=== PATIENT | female | born 2005 | race Caucasian/White ===

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

== ENCOUNTER 2025-06-27 09:55 | Emergency (ER) | payer OTHER, SELFPAY ==
--- NOTE | ~2025-06-27 | US_ITS ---
CLINICAL HISTORY: RLQ pain, pls look for appy US abdomen limited. COMPARISON: None provided. Technique: Multiple wheeler-scale and Doppler sonographic images were obtained over the right lower quadrant. FINDINGS: The appendix was not seen. Small amount of free fluid present within the right lower quadrant. Normal peristalsing bowel. No mass or adenopathy. Limited imaging of the right kidney is unremarkable. Limited imaging of the gallbladder is unremarkable. Bilateral ureteral jets visualized. IMPRESSION: 1. Appendix is not seen. 2. Small amount of free fluid present within the right lower quadrant. This document has been electronically signed by: Rakesh Sterling MD on 06/27/2025 17:47:50
--- NOTE | ~2025-06-27 | US_ITS ---
CLINICAL HISTORY: RLQ pain Ultrasound pelvis transabdominal. COMPARISON: None provided. Technique: Real time sonographic imaging, including color-flow imaging, was performed by the japanese professor. Multiple pharmacy sales representative static images were saved for review. FINDINGS: Anteverted uterus appears normal and measures 8.1 x 2.7 x 5.3 cm. No uterine fibroids identified. Endometrium: 2 mm, normal. Right ovary appears normal and measures 3.6 x 1.9 x 1.4 cm. Normal color and spectral Doppler. No right adnexal mass identified. Left ovary appears normal and measures 3.1 x 1.0 x 2.3 cm. Normal color Doppler. No left adnexal mass identified. No free fluid identified in the pelvic cul-de-sac. IMPRESSION: 1. No cause for patient's symptoms identified. No evidence of ovarian torsion This document has been electronically signed by: Rakesh Sterling MD on 06/27/2025 17:44:48
[2025-06-27 10:35] VITALS: BP 90/55; PULSE 78; RESP 20; TEMP 36.6; O2SAT 100; BMI 21.5
--- NOTE | 2025-06-27 10:37 | ED.GENADULT ---
HPI - General Adult General Chief complaint: Abdominal Pain Stated complaint: severe abd pain Time Seen by Provider: 06/27/25 14:49 History of Present Illness ED Provider: Chris SALAS narrative: The patient is a 19-year-old female who says that she has a history of severe pains with menses. This morning she developed severe right lower quadrant pain that she thought was similar to pain that she has with menses but she is currently in her midcycle. She says that the pain was abrupt when she woke up this morning and was at 1st very severe and so she came to the emergency department. The pain is in the right lower quadrant. She has had nausea and vomiting. She vomited once. Pain does not radiate. No vaginal symptoms. No urinary symptoms. The patient has never been sexually active. She is currently midcycle. Related Data Previous Rx's ?Medication ?Instructions ?Recorded ibuprofen 400 mg tablet 400 mg PO Q6H PRN pain #14 tabs 06/27/25 Allergies Allergy/AdvReac Type Severity Reaction Status Date / Time No Known Allergies (No Known Allergy Unverified 06/27/25 10:36 Allergies*) Review of Systems Review of Systems: Yes all other systems are reviewed and are negative [facility] Past Medical History Surgical History (Updated 09/21/22 @ 09:24 by FERN Higuera) History of excision of pilonidal cyst History of excision of mass Physical Exam ED Vital Signs: Vital Signs - 24 hr 06/27/25 10:35 06/27/25 13:44 06/27/25 19:09 Temperature 97.8 F 97.6 F 0 F L Pulse Rate 78 66 68 Respiratory Rate 20 18 16 Blood Pressure 90/55 L 97/61 96/56 L Pulse Oximetry 100 100 100 Oxygen Delivery Method Room Air Room Air Room Air BMI result Body Mass Index 21.5 Const Other: The patient is a slim 19-year-old female who looks as though she is ordinarily healthy and who was awake and alert. She looks somewhat uncomfortable. Orientation/consciousness: patient oriented x3 HENMT Other: The face is symmetrical. Mucous membranes moist. Eyes Other: Pupils are round equal, conjunctivae are clear, extraocular movements intact General: appearance normal, both eyes and all related structures Neck Neck: Yes normal visual inspection and Yes full ROM Resp Effort & Inspection: normal respiratory effort Auscultation: clear to auscultation bilaterally Cardio Rate: regular rate Rhythm: regular rhythm Heart sounds: S1 normal heart sound present and S2 normal heart sound present GI Other: the abdomen was flat and soft. She is tender in the right lower quadrant. No real rebound or guarding. No right upper quadrant tenderness. No Llanos's sign. General: Yes no CVA tenderness Back/Spine/Pelvis Back: no CVA tenderness Skin Other: The skin is dry and unremarkable Neuro General: patient oriented x3, tone normal, moves all extremities, no focal motor deficits and CN's II-XI intact bilaterally Extrem Other: There is no calf swelling or tenderness. No asymmetry. No peripheral edema. Course Course Course Narrative: This is a rapid medical exam performed by Shelly Duran NP: Additional HPI, ROS, PE not included below will be deferred to primary provider. Patient is a 19-year-old F presenting with RLQ abd pain which woke her from sleep this am, initially constant, now intermittent. Denies vaginal bleeding. Nausea and one long episode of vomiting. Plan: Labs, U/A Medications Administered Discontinued Medications Generic Name Dose Route Start Last Admin Trade Name Everq PRN Reason Stop Dose Admin Acetaminophen 650 mg 06/27/25 17:59 06/27/25 18:13 Acetaminophen 325 Mg Tablet PO 06/27/25 18:00 650 mg ONCE ONE Administration Sodium Chloride 1,000 mls @ 999 mls/hr 06/27/25 15:30 06/27/25 16:29 Ns IV 06/27/25 16:30 Infused .Q1H1M MARTA Infusion Ketorolac Tromethamine 15 mg 06/27/25 17:34 06/27/25 18:14 Ketorolac Tromethamine 15 Mg/Ml Vial IM 06/27/25 17:35 15 mg ONCE ONE Administration Medical Decision Making Medical Decision Making MDM Narrative: The patient is a 19-year-old female who has no past surgical history. She says she has never been sexually active. She says she has a history of very severe menstrual discomfort when she has her menses. She says that she developed fairly abrupt onset right lower quadrant abdominal pain this morning that initially felt like 1 of her severe episodes of dysmenorrhea but was not associated with any onset of menses. She says that in fact she is in mid cycle. She was very surprised that she felt this degree of pain and this kind of pain without having her period. On exam the patient seems to have right lower quadrant tenderness. Her symptoms seem somewhat positional. She has no CVA percussion tenderness. No urinary symptoms. No vaginal symptoms. She has never been sexually active. The abrupt onset nature of the patient's pain would argue against appendicitis. The patient's pain had already improved somewhat spontaneously at the time that I examined her. She told me that the pain she was still experiencing at the time that I examined her was less than her typical menstrual discomfort. The patient had lab testing that showed a normal white count and differential. LFTs unremarkable. My suspicion for appendicitis was fairly low. We obtained an ultrasound of the right lower quadrant to possibly look for appendicitis. Additionally a pelvic ultrasound ( transabdominal as the patient is not sexually active). the appendix was not seen on ultrasound but there was signs of peristalsis. The pelvic ultrasound was unremarkable. The patient's labs are unremarkable. Her urinalysis is normal. There was no hematuria. No ket ones In the urine. My overall impression is that this pain, which the patient describes as being similar to menstrual pain, may be mittelschmerz. She was treated with IV ketorolac and oral acetaminophen. She was in the emergency room for several hours. She was feeling extremely hungry. Again my suspicion for appendicitis is quite low. She will be discharged use ibuprofen and acetaminophen. She should follow up with her PCP. She was also given the contact information for [facility] given her description of significant symptoms during menses. She should return if worse. Lab Data 06/27/25 11:29 06/27/25 11:29 Labs: Lab Results 06/27/25 06/27/25 Range/Units 11:29 18:01 WBC 6.6 (4.8-10.8) X10*3/uL RBC 4.10 L (4.20-5.50) X10*6/uL Hgb 12.6 (12.0-16.0) g/dl Hct 36.1 L (37.0-47.0) % MCV 88.0 (80.0-98.0) fL MCH 30.7 (27.0-33.0) pg MCHC 34.9 (31.0-35.0) g/dl RDW 11.7 (11.0-16.0) % Plt Count 199 (160-400) X10*3/uL MPV 9.1 L (9.4-12.3) fL Immature Gran % (Auto) 0.3 (0.0-0.4) % Neut % (Auto) 58.7 (45-73) % Lymph % (Auto) 33.7 (20-40) % [place] % (Auto) 6.4 (2-11) % Eos % (Auto) 0.6 (0-4) % Baso % (Auto) 0.3 (0-2) % Lymph # (Auto) 2.2 (1.2-4.9) X10*3/uL [place] # (Auto) 0.4 (0.1-1.2) X10*3/uL Eos # (Auto) 0.0 (0.0-0.4) X10*3/uL Baso # (Auto) 0.0 (0.0-0.2) X10*3/uL Abs Immat Gran (auto) 0.02 (0.00-0.03) X10*3/uL Absolute Neuts (auto) 3.9 (2.0-8.3) x10*3/uL Absolute Nucleated RBC 0.000 (0.0-0.012) X10*3/uL Nucleated RBC % (auto) 0.0 (0.0-0.2) /100WBC Sodium 139 (135-145) mmol/L Potassium 4.1 (3.3-5.1) mmol/L Chloride 110 H (96-108) mmol/L Carbon Dioxide 23 (22-29) mmol/L Anion Gap 10 L (12-20) BUN 7 L (9-16) mg/dL Creatinine 0.73 (0.5-1.4) mg/dL Estim Creat Clear Calc 111.5 Estimated GFR > 60 Random Glucose 96 (60-115) mg/dL Calcium 8.8 (8.4-10.2) mg/dL Total Bilirubin 0.4 (0.0-1.0) mg/dL AST 28 (5-31) U/L ALT 31 (0-31) U/L Alkaline Phosphatase 65 (39-117) U/L Total Protein 6.9 (6.5-8.0) g/dL Albumin 4.3 (3.5-5.0) g/dL Beta HCG, Quant < 2 mIU/mL Urine Color Yellow Urine Appearance Clear Urine pH 7.5 (5.0-9.0) Ur Specific [place] <= 1.005 (1.005-1.025) Urine Protein Negative (Neg-Trace) mg/dL Urine Glucose (UA) Negative (Negative) mg/dL Urine Ketones Negative (Negative) mg/dL Urine Blood Negative (Negative) Urine Nitrite Negative (Negative) Ur Leukocyte Esterase Negative (Negative) Discharge Plan Discharge Clinical Impression: Acute right lower quadrant pain Patient Disposition: Home, Self-Care Additional Instructions: Between your blood work and the ultrasounds we are not finding any dangerous process. I think your pain may be a phenomenon called mittelschmerz. Mittelschmerz is a type of pain that can occur during the middle of a menstrual cycle and is thought to be related to ovulation. It can feel very much like period pain. I have sent a prescription for ibuprofen to your pharmacy. You may take this as needed. You may also use slag-vap-aekkana acetaminophen (Tylenol) in addition. Please contact your regular doctor's office for a follow up appointment to discuss this episode further. Given how much trouble you seem to have with menstrual pain it might be good for you to see a care companion. I have given you the contact information for the [facility] office. If you feel significantly worse at any point please return to the emergency department. Prescriptions: New ibuprofen 400 mg tablet 400 mg PO Q6H PRN (Reason: pain) Qty: 14 0RF Referrals: [facility] [Provider Group] Toya Verma MD [Primary Care Provider, Internal Medicine] Stand Alone Forms: Work/School Release Interventions: ED Discharge Assessment Last Done: 06/27/25 19:09 Discharge Date/Time: 06/27/25 19:10 Print Language: Kuwaiti
[2025-06-27 11:33] LABS: MANUAL DIFF FLAG NO
[2025-06-27 11:45] LABS: Hematocrit 36.1 % (37.0-47.0); Hemoglobin 12.6 g/dl (12.0-16.0); Imm Gran Abs Auto 0.02 X10*3/uL (0.00-0.03); Imm Gran Pct Auto 0.3 % (0.0-0.4); Lymphocytes Absolute Auto 2.2 X10*3/uL (1.2-4.9); Mean Corpuscular HGB Conc 34.9 g/dl (31.0-35.0); Mean Corpuscular Hemoglobin 30.7 pg (27.0-33.0); Mean Corpuscular Volume 88.0 fL (80.0-98.0); NRBC Abs Auto 0.000 X10*3/uL (0.0-0.012); NRBC Pct Auto 0.0 /100WBC (0.0-0.2); Platelet Count 199 X10*3/uL (160-400); Red Blood Count 4.10 X10*6/uL (4.20-5.50); White Blood Count 6.6 X10*3/uL (4.8-10.8)
[2025-06-27 12:06] LABS: Alanine Aminotransferase 31 U/L (0-31); Albumin Level 4.3 g/dL (3.5-5.0); Alkaline Phosphatase 65 U/L (39-117); Anion Gap 10 (12-20); Aspartate Amino Transferase 28 U/L (5-31); Blood Urea Nitrogen 7 mg/dL (9-16); Calcium 8.8 mg/dL (8.4-10.2); Carbon Dioxide 23 mmol/L (22-29); Chloride 110 mmol/L (96-108); Creatinine Clr Calc Pharmacy 111.5; Estimated Glomerular Filt Rate > 60; Potassium 4.1 mmol/L (3.3-5.1); Sodium 139 mmol/L (135-145); Total Protein 6.9 g/dL (6.5-8.0)
[2025-06-27 13:44] VITALS: BP 97/61; PULSE 66; RESP 18; TEMP 36.4; O2SAT 100
--- NOTE | 2025-06-27 13:51 | PC.NURSE ---
19 F presents to ED with RLQ pain 6/10 with n/v since this morning. A+Ox4, calm, cooperative. RR even and unlabored, denies CP or SOB.
--- OUTSIDE RECORDS SUMMARY | 2025-06-27 14:44 | XMS_ITS | Clinical Summary ---
Author Organization [employer] Address [address] [facility] 7 [place] [address] Care Team Providers Care Blow Mold Technician Name Role Phone Toya Verma MD Primary Care Provider [phone] Allergies Active Allergy Reactions Criticality Noted Date Comments Pineapple 09/23/2023 Medications naproxen (Naprosyn) 250 MG tablet Take 1 tablet by mouth if needed in the morning and at bedtime. 2 Active albuterol 108 (90 Base) MCG/ACT inhalerIndicatio ns:Mild intermittent asthma, unspecified whether complicated 2 puffs q 4 hours prn cough, wheeze or SOB 18 g 3 Active fluticasone furoate (Arnuity Ellipta) 200 MCG/ACT inhaler Inhale 1 puff Once per day. Rinse mouth with water after use to reduce aftertaste and incidence of candidiasis. Do not swallow. 1 each 11 4 10/02/20 25 Active Nirmatrelvir&Rit onavir 300/100 (Paxlovid, 300/100,) 20 x 150 MG & 10 x 100MG tablet therapy pack Take 1 Package by mouth 2 times daily. Normal renal problems No medications 30 each 4 Active Active Problems Problem Noted Date Diagnosed Date Mild intermittent asthma 10/18/2023 Chronic right shoulder pain 09/28/2023 Encounters Date Type Department Care Team Description 06/27/2025 Orders Only GENERIC EXTERNAL DATA DEPARTMENT Provider, Generic External Data from Last 3 Months Immunizations Immunization Administration Dates Next Due DTaP 03/23/2011, 7,09/08/2006,03/09,2005 HPV 9-Valent 01/26/2019,03/03/2016,12/29/2015 Hep A, ped/adol, 2 dose 05/02/2008,09/08/2006 Hep A, ped/adol, 3 dose 05/02/2008 Hep B, Adolescent or Pediatric 03/09/2006,2005,2005 Hib (HbOC) 02/20/2007, 6,03/09/2006,11/04 IPV 03/23/2011, 6,03/09/2006,11/04 Influenza injectable quadriv alent IIV4 with preservative 09/27/2023 Influenza injectable quadriv alent preservative free 07/27/2022,07/27/2022,08/22/2020,08/23,12/16/2017,12/27/2014 Influenza live intranasal qu adrivalent LIAV4 12/29/2015 Influenza, IIV3, injectable 08/17/2011,0 10/30/2010,09/29/2009,08/26,07/31/2007 Influenza, Split (incl. jasmine fied surface antigen) 10/19/2013 MMR 10/30/2010,09/08/2006 MMRV 09/08/2006 Meningococcal B, Omv 07/27/2022 Meningococcal MCV4P ACYW-135 12/16/2017 Pneumococcal Conjugate PCV 7 03/09/2006,11/04/19 06 Tdap 12/16/2017 Varicella 02/20/2007 Social History Tobacco Use Types Packs/Day Years Used Date Smoking Tobacco: Never Passive Smoke Exposure: Never Smokeless Tobacco: Never Tobacco Cessation:Counseling Given: Not Answered Depression Answer Date Recorded Patient Health Questionnaire-9 Score 0 09/27/2023 Patient Health Questionnaire-9 Score 0 09/27/2023 Last PHQ-9: Questionnaire Data Not on file 1 11/28/2022 Housing Stability Answer Date Recorded What is your housing situation today? I have mony son 11/01/[address] you li ve. Do you have problems with any of the following? None of the above 11/01/2024 Food Insecurity Answer Date Recorded Within the past 12 months, y ou worried that your food would run out before you got money to buy more: Never True 11/01/2024 Within the past 12 months,th e food you bought just didn't last and you didn't have enough money to get more: Never True 06/2025 Transportation Answer Date Recorded In the past 12 months, has l ack of transportation kept you from medical appts, meetings, work or from getting things needed for daily living? No 11/01/2024 Utilities Answer Date Recorded In the past 12 months, has t he electric, gas, oil or water company threatened to shut off services in your home? No 11/01/2024 Depression Answer Date Recorded Patient Health Questionnaire-2 Score 0 09/27/2023 Internet Access Answer Date Recorded Internet Access Q1 Yes 11/01/2024 Internet Access Q2 Not on file 11/01/2024 Comments Unknown Sex and Gender Information Value Date Recorded Sex Assigned at Female 2022 10:18 AM EDT Legal Sex Female 10:18 AM EDT Gender Identity Female 2022 10:18 AM EDT Sexual Orientation Choose not to disclose 2021 10:18 AM EDT Last Filed Vital Signs Vital Sign Reading Time Taken Comments Blood Pressure 107/74 10/02/2024 3:54 PM EST Pulse 89 10/02/2024 3:54 PM EST Temperature 36.8 C (98.3 F) 10/02/2024 3:54 PM EST Respiratory Rate 16 10/02/2024 3:54 PM EST Oxygen Saturation 99% 10/02/2024 3:54 PM EST Inhaled Oxygen Concentration - - Weight 59 kg (130 lb) 10/02/2024 3:54 PM EST Height 153.1 cm (5' 0.28 ) 01/30/2024 5:22 PM ED T Body Mass Index 25.15 01/30/2024 5:22 PM EDT Plan of Treatment Health Maintenance Due Date Last Done Comments Chlamydia and Gonorrhea Screening 2005 Dental Oral Exam 2005 Dental Prophylaxis 2005 Dental X-Ray: Bitewings 2005 Dental X-Ray: Full Mouth 2005 HIV Screening 2005 Disability Screening 2005 Fluoride Varnish 06/29/2015 12/27/2014, 11/17/2011 Alcohol/Substance Use Screening 2017 Family Planning (PISQ) 2020 Meningococcal B Vaccine (2 of 2 - Bexsero SCDM 2-dose series) 01/25/2023 07/27/2022 Hepatitis C Screening 2023 Pneumococcal Vaccine: Pediatrics (0 to 5 Years) and At-Risk Patients (6 to 49) Years (1 of 2 - PCV) 2024 03/09/2006, 2005 Depression Screening 09/27/2024 09/27/2023, 09/27/20 23 COVID-19 Vaccine (2 - 2024- season) 2025 04/14/2021 Influenza Vaccine (#1) 2025 , 07/27/2022, 07/27/2022, Additional history exists SDOH Screening 11/01/2025 11/01/2024 Tobacco Screening 11/01/2025 11/01/2024 DTaP/Tdap/Td Vaccines (7 - Td or Tdap) 12/16/2027 12/16/2017, 03/23/2011, 02/20/2007, Additional history exists Zoster Vaccines (1 of 2) 2055 RSV Patients and Patients Aged 60 years or older (1 - 1-dose 75+ series) 2080 Hepatitis B Vaccines Completed 03/09/2006, 2005, 2005 HIB Vaccines Completed 02/20/2007, 08/24, 03/09/2006, Additional history exists Varicella Vaccines Completed 02/20/2007, 09/08/2006 Hepatitis A Vaccines Completed 05/02/2008, 09/08/20 06 MMR Vaccines Completed 10/30/2010, 08/24, 09/08/2006 IPV Vaccines Completed 03/23/2011, 08/24, 03/09/2006, Additional history exists Meningococcal Vaccine Aged Out 12/16/2017 No rafa ene eligible based on patient's age to complete this topic HPV Vaccines Completed 01/26/2019, 02/21, 12/29/2015 RSV under 20 months Aged Out No longe r eligible based on patient's age to complete this topic Rotavirus Vaccines Aged Out No longer eligible based on patient's age to complete this topic Procedures Procedure Name Priority Date/Time Associated Diagnosis Comments HCG, TOTAL, QN Routine 06/27/2025 11:29 AM EDT COMPREHENSIVE METABOLIC PANEL Routine 06/27/2025 11:29 AM EDT CBC WITH AUTO DIFFERENTIAL Routine 06/27/2025 11:29 AM EDT TOPICAL APPLICATION OF FLUORIDE VARNISH Routine 12/27/2014 12:00 AM EST from Last 3 Months or Most Recently Relevant to Health Maintenance Results * (ABNORMAL) CBC auto differential (06/27/2025 11:29 AM EDT) White Blood Count 6.6 4.8 - 10.8 X10*3/uL [facility] Red Blood Count 4.10(L) 4.20 - 5.50 X10*6/uL [facility] Hemoglobin 12.6 12.0 - 16.0 g/dl [facility] Hematocrit 36.1(L) 37.0 - 47.0 % [facility] Mean Corpuscular Volume 88.0 80.0 - 98.0 fL [facility] Mean Corpuscular Hemoglobin 30.7 27.0 - 33.0 pg [facility] Mean Corpuscular HGB Conc 34.9 31.0 - 35.0 g/dl [facility] Red Cell Distribution Width 11.7 11.0 - 16.0 % [facility] Platelet Count 199 160 - 400 X10*3/uL [facility] Mean Platelet Volume 9.1(L) 9.4 - 12.3 fL [facility] Neutrophils Percent Auto 58.7 45 - 73 % [facility] Imm Gran Pct Auto 0.3 0.0 - 0.4 % [facility] Lymphocytes Percent Auto 33.7 20 - 40 % [facility] Monocytes Percent Auto 6.4 2 - 11 % [facility] Eosinophils Percent Auto 0.6 0 - 4 % [facility] Basophils Percent Auto 0.3 0 - 2 % [facility] NRBC Pct Auto 0.0 0.0 - 0.2 /100WBC [facility] Neutrophils Absolute Auto 3.9 2.0 - 8.3 x10*3/uL [facility] Imm Gran Abs Auto 0.02 0.00 - 0.03 X10*3/uL [facility] Lymphocytes Absolute Auto 2.2 1.2 - 4.9 X10*3/uL [facility] Monocytes Absolute Auto 0.4 0.1 - 1.2 X10*3/uL [facility] Eosinophils Absolute Auto 0.0 0.0 - 0.4 X10*3/uL [facility] Basophils Absolute Auto 0.0 0.0 - 0.2 X10*3/uL [facility] NRBC Abs Auto 0.000 0.0 - 0.012 X10*3/uL [facility] 06/27/2025 11:2 9 AM EDT 06/27/2025 11:32 AM EDT us Generic External Data Provider LAB BLOOD ORDERAB LES Final Result [facility] [address] [place] [address] [phone] * hCG, Total, Quantitative (06/27/2025 11:29 AM EDT) HCG Quantitative <2 mIU/mL [facility] Comment:Weeks post LMP Appro ximate hCG(Last Menstrual Period) Range (mIU/ml)3 - 4 weeks 9 - 1304 - 5 weeks 75 - 2,6005 - 6 weeks 850 - 20,8006 - 7 weeks 4000 - 100,2007 - 12 weeks 11,500 - 289,17017 - 16 weeks 18,300 - 137,75844 - 29 weeks (2nd trimester) 1,400 - 53,64770 - 41 weeks (3rd trimester) 940 - 60,000The Rodas B- hCG assay is used for the early detection ofpregnancy; it cannot be used to diagnose any conditionunrelated to . If a B-hCG level is not supportedby the clinical evidence, results should be confirmed by analternative method (qualitative urine hCG, for example). 06/27/2025 11:2 9 AM EDT 06/27/2025 11:32 AM EDT us Generic External Data Provider LAB BLOOD ORDERAB LES Final Result [facility] [address] [place] [address] [phone] * (ABNORMAL) Comprehensive Metabolic Panel (06/27/2025 11:29 AM EDT) Sodium 139 135 - 145 mmol/L [facility] Potassium 4.1 3.3 - 5.1 mmol/L [facility] Chloride 110(H) 96 - 108 mmol/L [facility] Carbon Dioxide 23 22 - 29 mmol/L [facility] Anion Gap 10(L) 12 - 20 [facility] Urea Nitrogen (BUN) 7(L) 9 - 16 mg/dL [facility] Creatinine, Serum 0.73 0.5 - 1.4 mg/dL [facility] Creatinine Clr Calc Pharmacy 111.5 [facility] Comment:Provided height and weight: 165.1 cm,58.6 kg.eGFR (calculated from the MDRD study equation) and eCrCl(calculated from the Cockcroft-Gault equation) are based ondifferent parameters and may not yield comparable results.If eCrCl result is absurd, please check patient'sheight/weight. Estimated Glomerular Filt Rate >60 [facility] Comment:Chronic Kidney Disea se: Estimated GFR < 60 mL/min/1.51c2Enlrwf Kidney Disease: Estimated GFR < 15 mL/min/1.73m2 Glucose 96 60 - 115 mg/dL [facility] Calcium 8.8 8.4 - 10.2 mg/dL [facility] Bilirubin, Total 0.4 0.0 - 1.0 mg/dL [facility] Aspartate Amino Transferase 28 5 - 31 U/L [facility] Alanine Aminotransferase 31 0 - 31 U/L [facility] Total Protein 6.9 6.5 - 8.0 g/dL [facility] Albumin Level 4.3 3.5 - 5.0 g/dL [facility] Alkaline Phosphatase 65 39 - 117 U/L [facility] 06/27/2025 11:2 9 AM EDT 06/27/2025 11:32 AM EDT us Generic External Data Provider LAB BLOOD ORDERAB LES Final Result Performing Organization Address City/State/[facility] Co de Phone Number [facility] [address] [place] [address] [phone] from Last 3 Months Insurance [facility] [employer] Care Teams Blow Mold Technician Relationship Specialty Start Date End Date Toya Verma MD [address] [place] [address] PCP - General Family Medicine 12/03/20
--- OUTSIDE RECORDS SUMMARY | 2025-06-27 14:44 | XMS_ITS | Clinical Summary ---
Author Organization [facility] Address [address] [place] [phone] Phone Care Team Providers Care Newspaper Illustrator Name Role Phone Jess Frazier DO Primary Care Provider [phone] Social History Tobacco Use Types Packs/Day Years Used Date Smoking Tobacco: Never Assessed Comments Unknown Sex and Gender Information Value Date Recorded Sex Assigned at Not on file Legal Sex Female 12:02 PM EST Gender Identity Not on file Sexual Orientation Not on file Plan of Treatment Not on file Medical Devices Not on file Care Teams Newspaper Illustrator Relationship Specialty Start Date End Date Jess Frazier DO [address] [place] [address] PCP - General Pediatrics 09/24/20 Additional Source Comments The information contained in this document represents components of the legal health record. It is not the complete legal health record.[facility]
--- OUTSIDE RECORDS SUMMARY | 2025-06-27 14:44 | XMS_ITS | Encounter Summary ---
Author Organization [employer] Address [address] [place] [address] Care Team Providers Care Time Study Analyst Name Role Phone Toya Verma MD Primary Care Provider Encounter Details Date Type Department Care Team (Late st Contact Info) Description 06/27/2025 Orders Only GENERIC EXTERNAL DATA DEPARTMENT Provider, Generic External Data Social History Tobacco Use Types Packs/Day Years Used Date Smoking Tobacco: Never Passive Smoke Exposure: Never Smokeless Tobacco: Never Depression Answer Date Recorded Patient Health Questionnaire-9 [...] not to disclose 2021 10:18 AM EDT documented as of this encounter Plan of Treatment Not on file documented as of this encounter Procedures Procedure Name Priority Date/Time Associated Diagnosis Comments CBC WITH AUTO DIFFERENTIAL Routine 06/27/2025 11:29 AM EDT HCG, TOTAL, QN Routine 06/27/2025 11:29 AM EDT COMPREHENSIVE METABOLIC PANEL Routine 06/27/2025 11:29 AM EDT documented in this encounter Results * hCG, Total, Quantitative (06/27/2025 11:29 AM EDT) HCG Quantitative <2 mIU/mL [facility] Comment:Weeks post LMP Appro ximate hCG(Last Menstrual Period) Range (mIU/ml)3 - 4 weeks 9 - 1304 - 5 weeks 75 - 2,6005 - 6 weeks 850 - 20,8006 - 7 weeks 4000 - 100,2007 - 12 weeks 11,500 - 289,72924 - 16 weeks 18,300 - 137,92607 - 29 weeks (2nd trimester) 1,400 - 53,17381 - 41 weeks (3rd trimester) 940 - [...] Provider LAB BLOOD ORDERAB LES Final Result [facility] [address] [place] [address] [phone] * (ABNORMAL) Comprehensive Metabolic Panel (06/27/2025 11:29 AM EDT) Sodium 139 135 - 145 mmol/L [facility] Potassium 4.1 3.3 - 5.1 mmol/L [facility] Chloride 110(H) 96 - 108 mmol/L [facility] Carbon Dioxide 23 22 - 29 mmol/L [facility] Anion Gap 10(L) 12 - 20 [facility] Urea Nitrogen (BUN) 7(L) 9 - 16 mg/dL [facility] Creatinine, Serum 0.73 0.5 - 1.4 mg/dL [facility] Creatinine Clr Calc Pharmacy 111.5 [facility] Comment:Provided height and weight: 165.1 cm,58.6 kg.eGFR (calculated from the MDRD study equation) and eCrCl(calculated from the Cockcroft-Gault equation) are based ondifferent parameters and may not yield comparable results.If eCrCl result is absurd, please check patient'sheight/weight. Estimated Glomerular Filt Rate >60 [facility] Comment:Chronic Kidney Disea se: Estimated GFR < 60 mL/min/1.09q0Herfny Kidney Disease: Estimated GFR < 15 mL/min/1.73m2 Glucose 96 60 - 115 mg/dL [facility] Calcium 8.8 8.4 - 10.2 mg/dL [facility] Bilirubin, Total 0.4 0.0 - 1.0 mg/dL [facility] Aspartate Amino Transferase 28 5 - 31 U/L [facility] Alanine Aminotransferase 31 0 - 31 U/L [facility] Total Protein 6.9 6.5 - 8.0 g/dL [facility] Albumin Level 4.3 3.5 - 5.0 g/dL [facility] Alkaline Phosphatase 65 39 - 117 U/L [facility] 06/27/2025 11:2 9 AM EDT 06/27/2025 11:32 AM EDT us Generic External Data Provider LAB BLOOD ORDERAB LES Final Result [facility] [address], [place] [phone] * (ABNORMAL) CBC auto differential (06/27/2025 11:29 AM EDT) White Blood Count 6.6 4.8 - 10.8 X10*3/uL [facility] Red Blood Count 4.10(L) 4.20 - 5.50 X10*6/uL [facility] Hemoglobin 12.6 12.0 - 16.0 g/dl [facility] Hematocrit 36.1(L) 37.0 - 47.0 % [facility] Mean Corpuscular Volume 88.0 80.0 - 98.0 fL [facility] Mean Corpuscular Hemoglobin 30.7 27.0 - 33.0 pg [facility] Mean Corpuscular HGB Conc 34.9 31.0 - 35.0 g/dl [facility] Red Cell Distribution Width 11.7 11.0 - 16.0 % [facility] Platelet Count 199 160 - 400 X10*3/uL [facility] Mean Platelet Volume 9.1(L) 9.4 - 12.3 fL [facility] Neutrophils Percent Auto 58.7 45 - 73 % [facility] Imm Gran Pct Auto 0.3 0.0 - 0.4 % [facility] Lymphocytes Percent Auto 33.7 20 - 40 % [facility] Monocytes Percent Auto 6.4 2 - 11 % [facility] Eosinophils Percent Auto 0.6 0 - 4 % [facility] Basophils Percent Auto 0.3 0 - 2 % [facility] NRBC Pct Auto 0.0 0.0 - 0.2 /100WBC [facility] Neutrophils Absolute Auto 3.9 2.0 - 8.3 x10*3/uL [facility] Imm Gran Abs Auto 0.02 0.00 - 0.03 X10*3/uL [facility] Lymphocytes Absolute Auto 2.2 1.2 - 4.9 X10*3/uL [facility] Monocytes Absolute Auto 0.4 0.1 - 1.2 X10*3/uL [facility] Eosinophils Absolute Auto 0.0 0.0 - 0.4 X10*3/uL [facility] Basophils Absolute Auto 0.0 0.0 - 0.2 X10*3/uL [facility] NRBC Abs Auto 0.000 0.0 - 0.012 X10*3/uL [facility] 06/27/2025 11:2 9 AM EDT 06/27/2025 11:32 AM EDT us Generic External Data Provider LAB BLOOD ORDERAB LES Final Result [facility] [address] [place] [address] [phone] documented in this encounter Visit Diagnoses Not on filedocumented in this encounter Additional Health Concerns Assessment Noted Time PHQ-9 Depression Total Score: 0 09/27/20 23 2:27 PM EST documented as of this encounter Care Teams Time Study Analyst Relationship Specialty Start Date End Date Toya Verma MD [address] [place] [address] PCP - General Family Medicine 12/03/20 documented as of this encounter
[2025-06-27 18:16] LABS: Appearance Urine Clear; Glucose Urine UA Negative (Negative); PH 7.5 (5.0-9.0); Specific Gravity - Urine <= 1.005 (1.005-1.025)
[2025-06-27 19:09] VITALS: BP 96/56; PULSE 68; RESP 16; TEMP -17.7; TEMP 0; O2SAT 100
== END 2025-06-27 19:10 | disposition home or self-care (01) ==
PROVIDERS: Registered Nurse Emergency; Emergency Provider Emergency Medicine; PCP Family Medicine
DX: R10.31 Right lower quadrant pain (principal); R11.2 Nausea with vomiting, unspecified
CPT/HCPCS: 36415; 76705; 76856; 80053; 81003; 84702; 85025; 96360; 96372; 99284; 99285; J1885

== ENCOUNTER → 2025-06-27 14:58 | Outpatient (BNV) | payer OTHER, SELFPAY | PROVIDERS: Emergency Provider Emergency Medicine; PCP Family Medicine; Visit Provider Radiology Diagnostic Radiology | DX: R10.31 Right lower quadrant pain (principal) | CPT/HCPCS: 76705 ==